=== PATIENT | male | born 1985 | race Caucasian/White ===

== ENCOUNTER 2017-01-31 23:56 | Emergency (ER) | payer MEDICAID, MEDICARE, OTHER ==
[~2017-01-31] VITALS: Ht 149.9 cm; Wt 50.0 kg
[~2017-01-31 23:56] MED LIST: Z.0.NO CURRENT MEDS
[2017-02-01 00:33] LABS: AUTOMATED NEUTROPHIL # 7.7 TH/MM3 (1.8-7.7); BASOPHIL % 0.5 % (0.0-2.0); EOSINOPHIL # 0.6 TH/MM3 (0-0.4); EOSINOPHIL % 5.9 % (0.0-4.0); HEMATOCRIT 47.1 % (39.0-51.0); HEMO FLAGS DIFF FINAL; LYMPH % 14.2 % (9.0-44.0); LYMPHOCYTE # 1.5 TH/MM3 (1.0-4.8); MEAN CELL VOLUME 98.6 FL (80.0-100.0); MEAN CORPUSCULAR HEMOGLOBIN 34.7 PG (27.0-34.0); MEAN CORPUSCULAR HGB CONC 35.2 % (32.0-36.0); MONO % 7.7 % (0.0-8.0); NEUT % 71.7 % (16.0-70.0); PLATELET COUNT 197 TH/MM3 (150-450); RED BLOOD COUNT 4.77 MIL/MM3 (4.50-5.90); RED CELL DISTRIBUTION WIDTH 12.9 % (11.6-17.2); WHITE BLOOD COUNT 10.8 TH/MM3 (4.0-11.0)
[2017-02-01 00:37] VITALS: BP 124/78; PULSE 77; RESP 18; TEMP 98.2; O2SAT 98
[2017-02-01 00:48] LABS: ANION GAP 5 MEQ/L (5-15); BICARBONATE 28.6 MEQ/L (21.0-32.0); BLOOD UREA NITROGEN 10 MG/DL (7-18); CHLORIDE 103 MEQ/L (98-107); GLOMERULAR FILTRATION RATE 80 ML/MIN (>89); SODIUM (NA) 137 MEQ/L (136-145)
[2017-02-01 00:49] LABS: ALCOHOL LESS THAN 3 MG/DL (0-5)
--- NOTE | 2017-02-01 04:04 | PD ---
HPI Chief Complaint: Psychiatric Symptoms Time Seen by Provider: 04:03 Travel History International Travel<30 days: No Contact w/Intl Traveler<30days: No Traveled to known affect area: No History of Present Illness HPI 31-year-old male with history of bipolar disorder and PTSD presents to the emergency department under Silver act for psychiatric evaluation. Patient states he's been having suicidal thoughts. He has plan to jump in front of a car. Per report, patient has been living homeless and unable to find long-term. This has exacerbated his depression and suicidal thoughts. Denies any other acute medical he is at this time. PFSH Past Medical History ADHD: Yes Blood Disorders: No Bipolar Disorder: Yes Anxiety: Yes Cancer: No Diminished Hearing: No Endocrine: No Immune Disorder: No Implanted Vascular Access Dvce: No Insomnia: Yes Psychiatric: Yes (PTSD) Immunizations Current: Yes PNEUMOCCOCAL Vaccine (Year): 3 Past Surgical History Ear Surgery: Yes (TUBES - CHILDHOOD) Eye Surgery: Yes (LASIK) Tonsillectomy: Yes Other Surgery: Yes Social History Alcohol Use: Yes (1 YEAR SOBER) Tobacco Use: No Substance Use: No Allergies-Medications (Allergen,Severity, Reaction): Coded Allergies: No Known Allergies (Verified , 08/31/10) Reported Meds & Prescriptions Reported Meds & Active Scripts Active No Active Prescriptions or Reported Medications Review of Systems Except as stated in HPI: all other systems reviewed are Neg Physical Exam Narrative GENERAL: Well-nourished, well-developed male patient, in no acute distress SKIN: Focused skin assessment warm/dry. HEAD: Normocephalic. EYES: No scleral icterus. No injection or drainage. NECK: Supple, trachea midline. No JVD or lymphadenopathy. CARDIOVASCULAR: Regular rate and rhythm without murmurs, gallops, or rubs. RESPIRATORY: Breath sounds equal bilaterally. No accessory muscle use. GASTROINTESTINAL: Abdomen soft, non-tender, nondistended. MUSCULOSKELETAL: No cyanosis, or edema. BACK: Nontender without obvious deformity. No CVA tenderness. Data Data Last Documented VS Vital Signs Date Time Temp Pulse Resp B/P (MAP) Pulse Ox O2 Delivery O2 Flow Rate FiO2 02/01/17 06:29 70 18 119/67 (84) 02/01/17 00:37 98.2 98 Orders Orders Complete Blood Count With Diff (02/01/17 00:19) Basic Metabolic Panel (Bmp) (02/01/17 00:19) Psych Screen (02/01/17 00:19) Drug Screen, Random Urine (02/01/17 00:19) Alcohol (Ethanol) (02/01/17 00:19) Diet Regular Basic (02/01/17 Breakfast) Labs Laboratory Tests Test 02/01/17 00:22 02/01/17 00:35 White Blood Count 10.8 TH/MM3 Red Blood Count 4.77 MIL/MM3 Hemoglobin 16.6 GM/DL Hematocrit 47.1 % Mean Corpuscular Volume 98.6 FL Mean Corpuscular Hemoglobin 34.7 PG Mean Corpuscular Hemoglobin Concent 35.2 % Red Cell Distribution Width 12.9 % Platelet Count 197 TH/MM3 Mean Platelet Volume 7.8 FL Neutrophils (%) (Auto) 71.7 % Lymphocytes (%) (Auto) 14.2 % Monocytes (%) (Auto) 7.7 % Eosinophils (%) (Auto) 5.9 % Basophils (%) (Auto) 0.5 % Neutrophils # (Auto) 7.7 TH/MM3 Lymphocytes # (Auto) 1.5 TH/MM3 Monocytes # (Auto) 0.8 TH/MM3 Eosinophils # (Auto) 0.6 TH/MM3 Basophils # (Auto) 0.0 TH/MM3 CBC Comment DIFF FINAL Differential Comment Blood Urea Nitrogen 10 MG/DL Creatinine 1.07 MG/DL Random Glucose 95 MG/DL Calcium Level 8.9 MG/DL Sodium Level 137 MEQ/L Potassium Level 4.0 MEQ/L Chloride Level 103 MEQ/L Carbon Dioxide Level 28.6 MEQ/L Anion Gap 5 MEQ/L Estimat Glomerular Filtration Rate 80 ML/MIN Ethyl Alcohol Level LESS THAN 3 MG/DL Urine Opiates Screen NEG Urine Barbiturates Screen NEG Urine Amphetamines Screen POS Urine Benzodiazepines Screen NEG Urine Cocaine Screen NEG Urine Cannabinoids Screen NEG MDM Medical Decision Making Medical Screen Exam Complete: Yes Emergency Medical Condition: Yes Medical Record Reviewed: Yes Differential Diagnosis Mood disorder versus personality disorder versus adjustment reaction disorder versus malingering Narrative Course 31-year-old male presents to the emergency department under Silver act for psychiatric evaluation. Patient appears without distress. Vital signs are stable. Laboratory Tests Test 02/01/17 00:22 02/01/17 00:35 White Blood Count 10.8 TH/MM3 Red Blood Count 4.77 MIL/MM3 Hemoglobin 16.6 GM/DL Hematocrit 47.1 % Mean Corpuscular Volume 98.6 FL Mean Corpuscular Hemoglobin 34.7 PG Mean Corpuscular Hemoglobin Concent 35.2 % Red Cell Distribution Width 12.9 % Platelet Count 197 TH/MM3 Mean Platelet Volume 7.8 FL Neutrophils (%) (Auto) 71.7 % Lymphocytes (%) (Auto) 14.2 % Monocytes (%) (Auto) 7.7 % Eosinophils (%) (Auto) 5.9 % Basophils (%) (Auto) 0.5 % Neutrophils # (Auto) 7.7 TH/MM3 Lymphocytes # (Auto) 1.5 TH/MM3 Monocytes # (Auto) 0.8 TH/MM3 Eosinophils # (Auto) 0.6 TH/MM3 Basophils # (Auto) 0.0 TH/MM3 CBC Comment DIFF FINAL Differential Comment Blood Urea Nitrogen 10 MG/DL Creatinine 1.07 MG/DL Random Glucose 95 MG/DL Calcium Level 8.9 MG/DL Sodium Level 137 MEQ/L Potassium Level 4.0 MEQ/L Chloride Level 103 MEQ/L Carbon Dioxide Level 28.6 MEQ/L Anion Gap 5 MEQ/L Estimat Glomerular Filtration Rate 80 ML/MIN Ethyl Alcohol Level LESS THAN 3 MG/DL Urine Opiates Screen NEG Urine Barbiturates Screen NEG Urine Amphetamines Screen POS Urine Benzodiazepines Screen NEG Urine Cocaine Screen NEG Urine Cannabinoids Screen NEG Lab work is without acute concern. Patient is medically cleared to undergo psychiatric screening for further evaluation and disposition. Mental health screening discussed with the patient. Psychiatric screen ordered. Diagnosis Primary Impression: Adjustment reaction Qualified Codes: F43.23 - Adjustment disorder with mixed anxiety and depressed mood Additional Impression: Substance abuse Scripts No Active Prescriptions or Reported Meds Condition: Stable Val Dinero Feb 01, 2017 04:04
[2017-02-01 06:29] VITALS: BP 119/67; PULSE 70; RESP 18
--- NOTE | 2017-02-01 08:59 | PD ---
Physical Exam Time Seen by Provider: 08:[address] Robison has [facility] patient, lifted 3 cracked and the patient will be discharged home. Data Data Last Documented VS Vital Signs Date Time Temp Pulse Resp B/P (MAP) Pulse Ox O2 Delivery O2 Flow Rate FiO2 02/01/17 06:29 70 18 119/67 (84) 02/01/17 00:37 98.2 98 Orders Orders Complete Blood Count With Diff (02/01/17 00:19) Basic Metabolic Panel (Bmp) (02/01/17 00:19) Psych Screen (02/01/17 00:19) Drug Screen, Random Urine (02/01/17 00:19) Alcohol (Ethanol) (02/01/17 00:19) Diet Regular Basic (02/01/17 Breakfast) Labs Laboratory Tests Test 02/01/17 00:22 02/01/17 00:35 White Blood Count 10.8 TH/MM3 Red Blood Count 4.77 MIL/MM3 Hemoglobin 16.6 GM/DL Hematocrit 47.1 % Mean Corpuscular Volume 98.6 FL Mean Corpuscular Hemoglobin 34.7 PG Mean Corpuscular Hemoglobin Concent 35.2 % Red Cell Distribution Width 12.9 % Platelet Count 197 TH/MM3 Mean Platelet Volume 7.8 FL Neutrophils (%) (Auto) 71.7 % Lymphocytes (%) (Auto) 14.2 % Monocytes (%) (Auto) 7.7 % Eosinophils (%) (Auto) 5.9 % Basophils (%) (Auto) 0.5 % Neutrophils # (Auto) 7.7 TH/MM3 Lymphocytes # (Auto) 1.5 TH/MM3 Monocytes # (Auto) 0.8 TH/MM3 Eosinophils # (Auto) 0.6 TH/MM3 Basophils # (Auto) 0.0 TH/MM3 CBC Comment DIFF FINAL Differential Comment Blood Urea Nitrogen 10 MG/DL Creatinine 1.07 MG/DL Random Glucose 95 MG/DL Calcium Level 8.9 MG/DL Sodium Level 137 MEQ/L Potassium Level 4.0 MEQ/L Chloride Level 103 MEQ/L Carbon Dioxide Level 28.6 MEQ/L Anion Gap 5 MEQ/L Estimat Glomerular Filtration Rate 80 ML/MIN Ethyl Alcohol Level LESS THAN 3 MG/DL Urine Opiates Screen NEG Urine Barbiturates Screen NEG Urine Amphetamines Screen POS Urine Benzodiazepines Screen NEG Urine Cocaine Screen NEG Urine Cannabinoids Screen NEG MDM Supervised Visit with KATHLEEN: No Narrative Course Dr. Robison has evaluated the patient, lifted the Silver act and the patient will be discharged home. Patient contracts safety. Denies suicidal or homicidal ideations. Patient will be provided community resource packet to [facility] for follow-up. Has friends and family for support. Patient is medically cleared for discharge. Diagnosis Primary Impression: Adjustment reaction Qualified Codes: F43.23 - Adjustment disorder with mixed anxiety and depressed mood Additional Impression: Substance abuse Referrals: [facility] (Out patient) Primary Care Physician Psychiatrist [facility] Patient Instructions: General Instructions, Mood Disorders (ED), Polysubstance Abuse (ED) Additional Instruction: Contract safety to your self and others Follow-up with psychiatry Follow-up with primary care provider Follow-up with Lalo Stevens Return to the emergency department immediately with worsening of symptoms Med/Other Pt SpecificInfo: No Meds Exist/No RX given Scripts No Active Prescriptions or Reported Meds Disposition: 01 DISCHARGE HOME Condition: Stable Katelynn Crockett [employer] Feb 01, 2017 08:59
[2017-02-01 09:43] VITALS: BP 119/67; TEMP 97.3
--- NOTE | 2017-02-01 16:40 | PD.PSY.CON ---
Provisional Diagnosis Admission Date [place]. Substance induced mood disorder, amphetamine use disorder History of Present Illness Service Psychiatry Consult Requested By Reason for Consult Suicidal ideation Primary Care Physician Unknown HPI The patient is a-year-old descent the man, homeless, right, single, with self-reported psychiatric history of bipolar disorder and PTSD, amphetamine use disorder, malingering, antisocial personality disorder, no significant medical history, who presents to the emergency department under Silver act for psychiatric evaluation. Patient states he's been having suicidal thoughts. He has plan to jump in front of a car. Per report, patient has been living homeless and unable to find detention. This has exacerbated his depression and suicidal thoughts. Denies any other acute medical he is at this time. On psychiatric evaluation was the patient is sober, patient denies suicidal ideation, he says that he made a suicidal statement in order to get a bed to sleep. Patient is demanded to be discharged, he has been kind of disrespectful and demanding in the psychiatric ER. Review of Systems Constitutional: DENIES: Diaphoretic episodes, Fatigue, Fever, Weight gain, Weight loss, Chills, Dizziness, Change in appetite, Night Sweats Endocrine: DENIES: Heat/cold intolerance, Polydipsia, Polyuria, Polyphagia Eyes: DENIES: Blurred vision, Diplopia, Eye inflammation, Eye pain, Vision loss , Photosensitivity, Double Vision Ears, nose, mouth, throat: DENIES: Tinnitus, Hearing loss, Vertigo, Nasal discharge, Oral lesions, Throat pain, Hoarseness, Ear Pain, Running Nose, Epistaxis, Sinus Pain, Toothache, Odynophagia Respiratory: DENIES: Apneas, Cough, Snoring, Wheezing, Hemoptysis, Sputum production, Shortness of breath Cardiovascular: DENIES: Chest pain, Palpitations, Syncope, Dyspnea on Exertion , PND, Lower Extremity Edema, Orthopnea, Claudication Gastrointestinal: DENIES: Abdominal pain, Black stools, Bloody stools, Constipation, Diarrhea, Nausea, Vomiting, Difficulty Swallowing, Anorexia Genitourinary: DENIES: Sexual dysfunction, Urinary frequency, Urinary incontinence, Urgency, Hematuria, Dysuria, Nocturia, Penile Discharge, Testicular Pain, Testicular Swelling Musculoskeletal: DENIES: Joint pain, Muscle aches, Stiffness, Joint Swelling, Back pain, Neck pain Integumentary: DENIES: Abnormal pigmentation, Nail changes, Pruritus, Rash Hematologic/lymphatic: DENIES: Bruising, Lymphadenopathy Immunologic/allergic: DENIES: Eczema, Urticaria Neurologic: DENIES: Abnormal gait, Headache, Localized weakness, Paresthesias, Seizures, Speech Problems, Tremor, Poor Balance Psychiatric: DENIES: Anxiety, Confusion, Mood changes, Depression, Hallucinations, Agitation, Suicidal Ideation, Homicidal Ideation, Delusions Past Family Social History Coded Allergies: No Known Allergies (Verified , 08/31/10) Discontinued Reported Medications Miscellaneous (No Current Meds) Misc 08/31/10 Family History No family psychiatric history Social History Patient was born and raised in [place], he lives in the streets, single, unemployed, highest level of education is 10th grade Physical Exam Vital Signs Vital Signs Date Time Temp Pulse Resp B/P (MAP) Pulse Ox O2 Delivery O2 Flow Rate FiO2 02/01/17 09:43 97.3 60 18 119/67 (84) 98 Lab Results Test 02/01/17 00:22 02/01/17 00:35 White Blood Count 10.8 TH/MM3 Red Blood Count 4.77 MIL/MM3 Hemoglobin 16.6 GM/DL Hematocrit 47.1 % Mean Corpuscular Volume 98.6 FL Mean Corpuscular Hemoglobin 34.7 PG Mean Corpuscular Hemoglobin Concent 35.2 % Red Cell Distribution Width 12.9 % Platelet Count 197 TH/MM3 Mean Platelet Volume 7.8 FL Neutrophils (%) (Auto) 71.7 % Lymphocytes (%) (Auto) 14.2 % Monocytes (%) (Auto) 7.7 % Eosinophils (%) (Auto) 5.9 % Basophils (%) (Auto) 0.5 % Neutrophils # (Auto) 7.7 TH/MM3 Lymphocytes # (Auto) 1.5 TH/MM3 Monocytes # (Auto) 0.8 TH/MM3 Eosinophils # (Auto) 0.6 TH/MM3 Basophils # (Auto) 0.0 TH/MM3 CBC Comment DIFF FINAL Differential Comment Blood Urea Nitrogen 10 MG/DL Creatinine 1.07 MG/DL Random Glucose 95 MG/DL Calcium Level 8.9 MG/DL Sodium Level 137 MEQ/L Potassium Level 4.0 MEQ/L Chloride Level 103 MEQ/L Carbon Dioxide Level 28.6 MEQ/L Anion Gap 5 MEQ/L Estimat Glomerular Filtration Rate 80 ML/MIN Ethyl Alcohol Level LESS THAN 3 MG/DL Urine Opiates Screen NEG Urine Barbiturates Screen NEG Urine Amphetamines Screen POS Urine Benzodiazepines Screen NEG Urine Cocaine Screen NEG Urine Cannabinoids Screen NEG Mental Status Examination Appearance man, disheveled, poor hygiene, superficially cooperative, inappropriate Speech: Unremarkable Orientation: x3 Memory: Unremarkable Thought Process: Logical Thought Content: Unremarkable Hallucination Type: None Suicidal Ideation: No Previous Suicide Attempts: No Previous Homicide Attempts: No Judgment: WNL Affect: Other (inappropriate) Mood: Irritable Motor Activity: Normal gait Assessment & Plan Problem List: (1) Substance induced mood disorder ICD Codes: F19.94 - Other psychoactive substance use, unspecified with psychoactive substance-induced mood disorder Assessment & Plan: On psychiatric evaluation the patient is now clinically sober, he denies depressive symptoms, he denies anxiety annika and psychosis. He denies suicidal and homicidal ideation, he denies visual and auditory hallucinations. Suicidal statement made yesterday was referred as a result of amphetamine intoxication and malicious simulation in order to use the hospital as a detention. He does not meet criteria for psychiatric admission. Silver act will be lifted. Assessment & Plan Estimated LOS: Nam Solomon MD Feb 01, 2017 16:40
== END 2017-02-01 09:49 | disposition home or self-care (01) ==
LOC: NEPJ 23:56
DX: F43.23 Adjustment disorder with mixed anxiety and depressed mood (principal); F19.10 Other psychoactive substance abuse, uncomplicated; F31.9 Bipolar disorder, unspecified; Z59.0 Homelessness
CPT/HCPCS: 80048; 80307; 85025; 99284

== ENCOUNTER 2017-03-29 22:53 | Emergency (ER) | payer OTHER ==
[~2017-03-29] VITALS: Ht 160 cm; Wt 50.0 kg
[2017-03-29 22:54] VITALS: BP 119/66; PULSE 74; RESP 16; TEMP 98; O2SAT 98
--- NOTE | 2017-03-30 01:24 | PD ---
HPI Chief Complaint: Skin Problem Time Seen by Provider: 00:54 Travel History International Travel<30 days: No Contact w/Intl Traveler<30days: No Traveled to known affect area: No History of Present Illness HPI Patient comes in complaining of possible infected sutures. Patient reports sutures were placed 8 days ago on his left forearm at different ER. Patient's past 2 days he's had some redness and tenderness around the medial aspect of the wound. Patient denies any known fevers, nausea, vomiting, or new injury. Patient denies anything for this. Denies anything making it better. Touching it makes pain worse. Describes pain as burning like in nature without radiation. PFSH Past Medical History ADHD: Yes Blood Disorders: No Bipolar Disorder: Yes Anxiety: Yes Cancer: No Diminished Hearing: No Endocrine: No Immune Disorder: No Implanted Vascular Access Dvce: No Insomnia: Yes Psychiatric: Yes (PTSD) Immunizations Current: Yes Tetanus Vaccination: < 5 Years PNEUMOCCOCAL Vaccine (Year): 3 Past Surgical History Ear Surgery: Yes (TUBES - CHILDHOOD) Eye Surgery: Yes (LASIK) Tonsillectomy: Yes Other Surgery: Yes Social History Alcohol Use: No (1 YEAR SOBER) Tobacco Use: Yes Substance Use: No Allergies-Medications (Allergen,Severity, Reaction): Coded Allergies: No Known Allergies (Verified , 08/31/10) Reported Meds & Prescriptions Reported Meds & Active Scripts Active Bactrim DS (Sulfamethoxazole-Trimethoprim) 800-160 Mg Tab 1 Tab PO BID Review of Systems Except as stated in HPI: all other systems reviewed are Neg Physical Exam Narrative GENERAL: Well-developed, well nourished, in no acute distress, and non-ill appearing. SKIN: Focused skin assessment warm and dry. [address] noted over the volar surface of the left forearm. There is no drainage. There is mild erythematous and tenderness over the medial aspect and is firm. There is no active drainage. Respiratory intact distally. HEAD: Atraumatic. Normocephalic. EYES: Pupils equal and round. EOMI. No scleral icterus. No injection or drainage. ENT: No nasal bleeding or discharge. Mucous membranes pink and moist. NECK: Trachea midline. Supple. No nuclear rigidity. RESPIRATORY: No accessory muscle use. No respiratory distress. MUSCULOSKELETAL: No obvious deformities. No clubbing. No cyanosis. No edema. Full range of motion. NEUROLOGICAL: Awake and alert. No obvious cranial nerve deficits. Motor grossly within normal limits. Normal speech. PSYCHIATRIC: Appropriate mood and affect; insight and judgment normal. Data Data Last Documented VS Vital Signs Date Time Temp Pulse Resp B/P (MAP) Pulse Ox O2 Delivery O2 Flow Rate FiO2 03/30/17 01:33 03/29/17 22:54 98.0 74 16 98 Room Air Orders Orders Sulfamet-Trimeth Ds 800-160 Mg (Bactrim (03/30/17 01:30) Naproxen (Naprosyn) (03/30/17 01:30) Ed Discharge Order (03/30/17 01:24) [facility] Medical Decision Making Medical Screen Exam Complete: Yes Emergency Medical Condition: Yes Differential Diagnosis Suture removal, wound infection, cellulitis, abscess, other Narrative Course The patient has wound infection. There is no evidence of necrotizing fasciitis at this time. There is no evidence of abscess. There is no evidence of local joint space involvement. There is no evidence of deep venous thrombosis. The patient will be discharged on antibiotics. The patient was given signs and symptoms warnings for worsening infection, such as spreading of redness, increasing pain, and/or swelling, associated heat, or fever and instructed to return immediately if these signs or symptoms worsen. The patient is to follow up with physician in 2 days for recheck or return here in 2 days for recheck if unable to establish outpatient follow up. Sooner if worsens or as needed. The patient agrees with plan. Patient in no obvious distress upon re-evaluation. Patient was asked if they wanted to speak to my attending, which the patient did not wish to do at this time. Any questions/concerns in reference to patient diagnosis/condition discussed and clarified prior to patient's discharge. Reinforced sheer importance of close follow up with patient's primary physician or primary care clinic or return here in 2 days for recheck. Instructed patient to return to ED immediately, if symptoms return/worsen. Patient showed understanding of above instructions. Further instructions and recommendations were detailed in discharge paperwork. Patient ambulated without difficulty out of ED at discharge. Procedures Procedure Narrative Verbal consent was obtained. 8 sutures were easily removed. There is no complications. Patient tolerated procedure well. Patient was informed secondary to the infection may cause for the wound to dehisce. Diagnosis Primary Impression: Wound infection Additional Impression: Visit for suture removal Referrals: [facility] Patient Instructions: Acute Wound Care (DC), Cellulitis (ED), General Instructions, Stitches Removal (DC) Additional Instructions: Follow-up with your primary care physician or return here in 2 days for recheck. Take all medication as prescribed. Use [id number] Tylenol and/ or ibuprofen as needed for pain. Follow instructions on the packaging. Keep wound dry and clean as possible using soap and water. Use Neosporin to promote healing. Return to the emergency department if symptoms get worse. Med/Other Pt SpecificInfo: Prescription(s) given Scripts Sulfamethoxazole-Trimethoprim (Bactrim DS) 800-160 Mg Tab 1 TAB PO BID for Infection, #20 TAB 0 Refills Prov: Brianna Anand MD 03/30/17 Disposition: 01 DISCHARGE HOME Condition: Stable Loco Mercado Mar 30, 2017 01:24
[2017-03-30] MEDS ORDERED: SULFAMETHOXAZOLE-TRIMETHOPRIM DS 800-160 MG TAB PO ONE (01:30)
[2017-03-30] MEDS ORDERED: NAPROXEN 500 MG TAB PO ONE (01:30)
[2017-03-30] MEDS ORDERED: BACT800T5 PO (01:37)
== END 2017-03-30 02:08 | disposition home or self-care (01) ==
LOC: NEPD 22:53
DX: T81.4XXA Infection following a procedure, initial encounter (principal)
CPT/HCPCS: 99283